=== PATIENT | male | born 1925 | race Caucasian/White ===

== ENCOUNTER 2016-11-18 21:31 | Inpatient (IN) | payer MEDICARE ==
[2016-11-18 22:24] LABS: Basophils # (A) 0.1 k/uL (0-0.2); Basophils % (A) 0 %; CH 31.7; CHCM 34.4; Eosinophils # (A) 0.1 k/uL (0-0.7); Eosinophils % (A) 0 %; HCT 48.2 % (39.0-53.0); HDW 2.49; HGB 16.2 gm/dL (13.0-17.5); Luc # (Auto) 0.18; Luc % (Auto) 1; Lymphocytes # (A) 1.2 k/uL (1.0-4.8); Lymphocytes % (A) 7 %; MCH 31.1 pg (25.0-35.0); MCHC 33.6 g/dL (31.0-37.0); MCV 92.5 fL (80.0-100.0); Mean Platelet Volume 7.6; Monocytes # (A) 1.1 k/uL (0-1.0); Monocytes % (A) 6 %; Neutrophils # (A) 14.4 k/uL (1.3-7.7); Neutrophils % (A) 85 %; RBC 5.21 m/uL (4.30-5.90); WBC 16.9 k/uL (3.8-10.6); WBC (Perox) 17.14
[2016-11-18 22:34] LABS: ALT 23 U/L (21-72); AST 26 U/L (17-59); Alkaline Phosphatase 83 U/L (38-126); Anion Gap 11 mmol/L; Blood Urea Nitrogen 25 mg/dL (9-20); Calcium 9.7 mg/dL (8.4-10.2); Carbon Dioxide 26 mmol/L (22-30); Chloride 98 mmol/L (98-107); Glucose 111 mg/dL (74-99); Non-African American GFR(MDRD) 53 (>60 ml/min/1.73 sqM); Potassium 5.1 mmol/L (3.5-5.1); Sodium 135 mmol/L (137-145); Total Bilirubin 1.1 mg/dL (0.2-1.3); Total Protein 7.6 g/dL (6.3-8.2)
[2016-11-18] MEDS ORDERED: AZITHROMYCIN 500 MG in SODIUM CHLORIDE 0.9% 250 ML IVPB STA (22:37)
[2016-11-18] MEDS ORDERED: SODIUM CHLORIDE 0.9% 1,000 ML IV STA (22:37)
[2016-11-18] MEDS ORDERED: IPRATROPIUM 0.5 MG/2.5 ML NEBU INHALATION STA (22:37)
[2016-11-18] MEDS ORDERED: ALBUTEROL NEBULIZED 2.5 MG/3 ML INHALATION STA (22:37)
[2016-11-18] MEDS ORDERED: methylPREDNISolone SOD SUCCI 125 MG/2 ML VIAL IV STA (22:37)
[2016-11-18 22:38] LABS: INR 1.1 (<1.1); Partial Thromboplastin Time 26.6 sec (22.0-30.0); Prothrombin Time 10.6 sec (9.0-12.0)
[2016-11-18] MEDS ORDERED: ACETAMINOPHEN TAB 500 MG TAB PO STA (22:41)
--- NOTE | 2016-11-18 23:02 | XR ---
EXAMINATION TYPE: XR chest 2V DATE OF EXAM: 11/18/2016 10:53 PM COMPARISON: 07/01/2016 HISTORY: COPD and short of breath and cough TECHNIQUE: Frontal and lateral views of the chest are obtained. FINDINGS: There is a patchy consolidation at the right posterior lung base. The other lung valladares ar e clear. There is no heart failure. There are no hilar masses. There are sternal wires. Bony thorax a ppears intact. IMPRESSION: There is new right lower lobe consolidation consistent with pneumonia compared to old ex am. Normal heart.
[2016-11-18 23:19] LABS: Creatine Kinase 35 U/L (55-170)
[2016-11-18 23:25] LABS: Amorphous Sediment,Urine Rare /hpf; Appearance,Urine Cloudy (Clear); Bacteria,Urine Moderate /hpf; Bilirubin,Urine Negative (Negative); Glucose,Urine (UA) Negative (Negative); Ketones,Urine Negative (Negative); Leukocyte Esterase,Urine Large (Negative); Mucus,Urine Rare /hpf; Nitrite,Urine Positive (Negative); Particle Count 10018; Protein,Urine 1+ (Negative); RBC,Urine 15 /hpf (0-5); Specific Gravity,Urine 1.011 (1.001-1.035); Squamous Epithelial Cell,Urine 1 /hpf (0-4); UA Billing (MACRO vs. MICRO) MICRO; Urobilinogen,Urine <2.0 mg/dL (<2.0); WBC,Urine 85 /hpf (0-5)
[2016-11-18 23:32] LABS: Troponin I <0.012 ng/mL (0.000-0.034)
[2016-11-18 23:34] LABS: Creatine Kinase MB 4.3 ng/mL (0.0-2.4)
[2016-11-19] MEDS ORDERED: PNEUMONIA PROTOCOL UTILIZED 1 EACH MISC PO PRN (00:28)
--- NOTE | 2016-11-19 00:28 | ED ---
SOB HPI - General Chief Complaint: Shortness of Breath Stated Complaint: Fall, SOB Time Seen by Provider: 11/18/16 21:51 Source: patient, family, EMS Mode of arrival: EMS - History of Present Illness Initial Comments: Have oxygen dependent for 7 years, develops a fever had some chills have been coughing up some phlegm he noticed that his O2 sat at home was quite low, he has arrangement to measure his oxygen saturation at home. He does wear 3 L of oxygen at home also was complaining about pain in the right side of the chest and pain gets worse with deep breaths. Denies any headaches no neck stiffness no abdominal pain frequency urgency dysuria no signs of stroke or mini stroke - Related Data Home Medications Medication Instructions Recorded Confirmed ALPRAZolam [Xanax] 0.25 - 0.5 mg PO HS PRN 11/18/16 11/18/16 Aspirin EC [Ecotrin Low Dose] 81 mg PO DAILY 11/18/16 11/18/16 Atenolol 12.5 mg PO HS 11/18/16 11/18/16 Atenolol 25 mg PO QAM 11/18/16 11/18/16 Carbidopa-Levodopa 25-100 mg 1 tab PO BID 11/18/16 11/18/16 [Sinemet 25-100] Cholecalciferol [Vitamin D3] 1,000 unit PO DAILY 11/18/16 11/18/16 Ipratropium-Albuterol Nebulize 3 ml INHALATION RT-QID 11/18/16 11/18/16 [Duoneb 0.5 mg-3 mg/3 ml Soln] Irbesartan [Avapro] 75 mg PO HS 11/18/16 11/18/16 Methylcellulose (with Sugar) 1 scoop PO BID 11/18/16 11/18/16 [Citrucel Powder] Multivit-Min/FA/Lycopene/Lut 1 tab PO DAILY 11/18/16 11/18/16 [Centrum Silver Tablet] Polyethylene Glycol 3350 [Miralax] 17 gm PO DAILY 11/18/16 11/18/16 guaiFENesin [Mucinex] 600 mg PO BID 11/18/16 11/18/16 Allergies Allergy/AdvReac Type Severity Reaction Status Date / Time Sulfa (Sulfonamide Allergy Rash/Hives Verified 11/18/16 21:58 Antibiotics) Review of Systems ROS Statement: Those systems with pertinent positive or pertinent negative responses have been documented in the HPI. ROS Other: All systems not noted in ROS Statement are negative. Past Medical History Past Medical History: COPD, Hypertension Additional Past Medical History / Comment(s): BLADDER CA History of Any Multi-Drug Resistant Organisms: None Reported Past Surgical History: Hernia Repair, Prostate Surgery Additional Past Surgical History / Comment(s): UROSTOMY, BLADDER, HEART VALVE REPLACED, COLOSTOMY Past Psychological History: No Psychological Hx Reported Smoking Status: Former smoker Past Alcohol Use History: None Reported Past Drug Use History: None Reported General Exam - General Exam Comments Initial Comments: General: The patient is awake and alert, in no distress, and does not appear acutely ill. Skin: Skin is warm and dry and no rashes or lesions are noted. Eye: Pupils are equal, round and reactive to light, extra-ocular movements are intact; there is normal conjunctiva bilaterally. Ears, nose, mouth and throat: There are moist mucous membranes and no oral lesions. Neck: The neck is supple, there is no tenderness or JVD. Cardiovascular: There is a regular rate and rhythm. No murmur, rub or gallop is appreciated. Respiratory: To auscultation bilateral, crackles at the bases bilaterally Gastrointestinal: Soft, non-distended, non-tender abdomen without masses or organomegaly noted. There is no rebound or guarding present. Bowel sounds are unremarkable. Back: There is no tenderness to palpation in the midline. There is no obvious deformity. Musculoskeletal: Normal ROM, no tenderness, There is no pedal edema. There is no calf tenderness or swelling. No cords were appreciated. Neurological: CN II-XII intact, Cranial nerves III through XII are intact. There are no obvious motor or sensory deficits. Coordination appears grossly intact. Speech is normal. Psychiatric: Cooperative, appropriate mood & affect, normal judgment. Course Vital Signs 11/18/16 11/18/16 11/18/16 21:38 22:30 23:16 Temperature 101.3 F H Pulse Rate 96 81 88 Respiratory 20 18 Rate Blood Pressure 162/75 141/65 O2 Sat by Pulse 90 L 92 L Oximetry 11/18/16 11/18/16 23:32 23:45 Temperature 100.6 F H Pulse Rate 88 Respiratory Rate Blood Pressure O2 Sat by Pulse Oximetry EKG was reviewed in the ER, its normal sinus rhythm ventricular rate is 96 OH interval is 140 QRS duration is 88 QT/QTc is 342/432 review of this EKG reveals no ST elevation or ST depression Medical Decision Making - Lab Data Result diagrams: 11/18/16 21:53 11/18/16 21:53 Lab Results 11/18/16 11/18/16 11/18/16 Range/Units 21:53 21:53 21:53 WBC 16.9 H (3.8-10.6) k/uL RBC 5.21 (4.30-5.90) m/uL Hgb 16.2 (13.0-17.5) gm/dL Hct 48.2 (39.0-53.0) % MCV 92.5 (80.0-100.0) fL MCH 31.1 (25.0-35.0) pg MCHC 33.6 (31.0-37.0) g/dL RDW 12.0 (11.5-15.5) % Plt Count 170 (150-450) k/uL Neutrophils % 85 % Lymphocytes % 7 % Monocytes % 6 % Eosinophils % 0 % Basophils % 0 % Neutrophils # 14.4 H (1.3-7.7) k/uL Lymphocytes # 1.2 (1.0-4.8) k/uL Monocytes # 1.1 H (0-1.0) k/uL Eosinophils # 0.1 (0-0.7) k/uL Basophils # 0.1 (0-0.2) k/uL PT (9.0-12.0) sec INR (<1.1) APTT (22.0-30.0) sec D-Dimer (<0.60) mg/L FEU Sodium 135 L (137-145) mmol/L Potassium 5.1 (3.5-5.1) mmol/L Chloride 98 (98-107) mmol/L Carbon Dioxide 26 (22-30) mmol/L Anion Gap 11 mmol/L BUN 25 H (9-20) mg/dL Creatinine 1.27 H (0.66-1.25) mg/dL Est GFR (MDRD) Af Amer >60 (>60 ml/min/1.73 sqM) Est GFR (MDRD) Non-Af 53 (>60 ml/min/1.73 sqM) Glucose 111 H (74-99) mg/dL Plasma Lactic Acid Theodore 2.0 (0.7-2.0) mmol/L Calcium 9.7 (8.4-10.2) mg/dL Total Bilirubin 1.1 (0.2-1.3) mg/dL AST 26 (17-59) U/L ALT 23 (21-72) U/L Alkaline Phosphatase 83 (38-126) U/L Total Creatine Kinase (55-170) U/L CK-MB (CK-2) (0.0-2.4) ng/mL CK-MB (CK-2) Rel Index Troponin I (0.000-0.034) ng/mL Total Protein 7.6 (6.3-8.2) g/dL Albumin 4.4 (3.5-5.0) g/dL Urine Color Urine Appearance (Clear) Urine pH (5.0-8.0) Ur Specific [place] (1.001-1.035) Urine Protein (Negative) Urine Glucose (UA) (Negative) Urine Ketones (Negative) Urine Blood (Negative) Urine Nitrite (Negative) Urine Bilirubin (Negative) Urine Urobilinogen (<2.0) mg/dL Ur Leukocyte Esterase (Negative) Urine RBC (0-5) /hpf Urine WBC (0-5) /hpf Urine WBC Clumps (None) /hpf Ur Squamous Epith Cells (0-4) /hpf Amorphous Sediment (None) /hpf Urine Bacteria (None) /hpf Urine Mucus (None) /hpf 11/18/16 11/18/16 11/18/16 Range/Units 21:53 21:53 23:04 WBC (3.8-10.6) k/uL RBC (4.30-5.90) m/uL Hgb (13.0-17.5) gm/dL Hct (39.0-53.0) % MCV (80.0-100.0) fL MCH (25.0-35.0) pg MCHC (31.0-37.0) g/dL RDW (11.5-15.5) % Plt Count (150-450) k/uL Neutrophils % % Lymphocytes % % Monocytes % % Eosinophils % % Basophils % % Neutrophils # (1.3-7.7) k/uL Lymphocytes # (1.0-4.8) k/uL Monocytes # (0-1.0) k/uL Eosinophils # (0-0.7) k/uL Basophils # (0-0.2) k/uL PT 10.6 (9.0-12.0) sec INR 1.1 (<1.1) APTT 26.6 (22.0-30.0) sec D-Dimer 0.42 (<0.60) mg/L FEU Sodium (137-145) mmol/L Potassium (3.5-5.1) mmol/L Chloride (98-107) mmol/L Carbon Dioxide (22-30) mmol/L Anion Gap mmol/L BUN (9-20) mg/dL Creatinine (0.66-1.25) mg/dL Est GFR (MDRD) Af Amer (>60 ml/min/1.73 sqM) Est GFR (MDRD) Non-Af (>60 ml/min/1.73 sqM) Glucose (74-99) mg/dL Plasma Lactic Acid Theodore (0.7-2.0) mmol/L Calcium (8.4-10.2) mg/dL Total Bilirubin (0.2-1.3) mg/dL AST (17-59) U/L ALT (21-72) U/L Alkaline Phosphatase (38-126) U/L Total Creatine Kinase 35 L (55-170) U/L CK-MB (CK-2) 4.3 H* (0.0-2.4) ng/mL CK-MB (CK-2) Rel Index 12.3 Troponin I <0.012 (0.000-0.034) ng/mL Total Protein (6.3-8.2) g/dL Albumin (3.5-5.0) g/dL Urine Color Yellow Urine Appearance Cloudy (Clear) Urine pH 7.0 (5.0-8.0) Ur Specific [place] 1.011 (1.001-1.035) Urine Protein 1+ H (Negative) Urine Glucose (UA) Negative (Negative) Urine Ketones Negative (Negative) Urine Blood Small H (Negative) Urine Nitrite Positive (Negative) Urine Bilirubin Negative (Negative) Urine Urobilinogen <2.0 (<2.0) mg/dL Ur Leukocyte Esterase Large H (Negative) Urine RBC 15 H (0-5) /hpf Urine WBC 85 H (0-5) /hpf Urine WBC Clumps Occasional H (None) /hpf Ur Squamous Epith Cells 1 (0-4) /hpf Amorphous Sediment Rare H (None) /hpf Urine Bacteria Moderate H (None) /hpf Urine Mucus Rare H (None) /hpf Disposition Clinical Impression: Pneumonia, Chest pain, UTI (urinary tract infection) Disposition: ADMITTED IP TO THIS HOSP
[2016-11-19] MEDS: SODIUM CHLORIDE 0.9% 1,000 ML IV SCH ×3 (00:44→19:55)
[2016-11-19] MEDS: IPRATROPIUM-ALBUTEROL 3 ML NEB INHALATION PRN ×5 (03:03→20:34)
[2016-11-19 07:32] VITALS: BMI 25.4
[2016-11-19] MEDS: ASPIRIN 81 MG CHEW PO SCH (09:36)
[2016-11-19] MEDS: ATENOLOL 25 MG TAB PO SCH (09:36)
[2016-11-19] MEDS: CARBIDOPA-LEVODOPA 25-100 MG 1 EACH TAB PO SCH ×2 (09:36→21:48)
[2016-11-19] MEDS: CHOLECALCIFEROL 1,000 UNIT TAB PO SCH (09:37)
[2016-11-19] MEDS: POLYETHYLENE GLYCOL 3350 17 GM POWD.PACK PO SCH (09:38)
[2016-11-19] MEDS: guaiFENesin 600 MG TABLET.ER PO SCH ×2 (09:38→21:48)
[2016-11-19] MEDS: PSYLLIUM HUSK 100% 6 GM PACKET PO SCH ×2 (09:38→21:49)
[2016-11-19] MEDS: MULTIVITAMINS, THERA 1 EACH TAB PO SCH (11:47)
--- NOTE | 2016-11-19 11:47 | P.CNPUL ---
History of Present Illness Consult date: 11/19/16 Requesting physician: Dannie Warren Reason for consult: dyspnea (Right lower lobe infiltrate), abnormal CXR/CT Chief complaint: Shortness of breath, cough, congestion History of present illness: This is a very pleasant 89-year-old gentleman who follows with Dr. Jarquin as his primary care physician. He has a history of hypertension, coronary artery disease with previous stent placement, bladder cancer status post urostomy, prostate cancer status post prostatectomy, paracardial effusion with previous pericardial window, aortic valve replacement with tissue valve. He also has a history of oxygen dependent chronic obstructive pulmonary disease with FEV1 value of 52% of predicted and follows with Dr. Butcher in our office for the same. His been intolerant to multiple inhalers and currently utilizes albuterol updraft treatments 4 times a day. He was last seen in June and since that time had been doing quite well from the pulmonary standpoint. However just yesterday he developed increasing shortness of breath which worsened as the day went on. He had a loose nonproductive cough. Positive chills. He presented to the emergency room last evening. He did have a T-max of 101.3. He was 90% O2 saturation on 4 L/m per nasal cannula. Mild leukocytosis at 16.9. Urine with bacteria as well. His chest x-ray did reveal evidence of a new right lower lobe infiltrate and suspected pneumonia. He was admitted for the same. He is seen today in consultation on the regular medical floor. He is awake and alert in no acute distress. He states he is a 30 breathing better today as compared to yesterday. He is currently afebrile. He is maintaining good O2 saturations in the upper 90s on 3 L/m per nasal cannula. He has been initiated on ceftriaxone and azithromycin. Review of Systems 14 point review of system was conducted. All negative other than as mentioned in the HPI. Past Medical History Past Medical History: Coronary Artery Disease (CAD), COPD, Hyperlipidemia, Hypertension, Myocardial Infarction ([place]), Pneumonia, Renal Disease Additional Past Medical History / Comment(s): SOB with exertion, O2 at 3L/NC ATC , BLADDER CA with urostomy, BPH with surgery, 2012 fell and had pericardial effusion-had pericardial window, CKD, nephrolithiasis, arthritis bilateral hands , L ear melanoma withremoval, balance problems, unable to tolerate statins, neuropathy bilateral legs and feet. Last Myocardial Infarction Date:: 1992 History of Any Multi-Drug Resistant Organisms: None Reported Past Surgical History: Bladder Surgery, Cardiac Valve Replacement, Heart Catheterization, Heart Catheterization With Stent, Hernia Repair, Prostate Surgery Additional Past Surgical History / Comment(s): UROSTOMY, prostatectomy, 2010 aortic valve replaced with tissue valve, 2008 PCI with stent to RCA, 09/14/11 pericardial window, incisional hernia with mesh, CHIKI and cardiac caths, bilateral cataract removal, L ear melanoma removed, EGD/colonoscopies. Past Anesthesia/Blood Transfusion Reactions: No Reported Reaction Additional Past Anesthesia/Blood Transfusion Reaction / Comment(s): Pt has received autodonor blood with prostatectomy. Date of Last Stent Placement:: 2008 Past Psychological History: No Psychological Hx Reported Additional Psychological History / Comment(s): Pt resides with spouse of 70yrs. He uses a cane to ambulate. He has a walker but does not need to use it. He and his spouse no longer drive, their children can take them to appts. There are 4 steps to get into the home and then it is one level. Pt has O2 at 3L/NC and a nebulizer. Smoking Status: Former smoker Past Alcohol Use History: None Reported Additional Past Alcohol Use History / Comment(s): Pt smoked from 1959 to 1982. Past Drug Use History: None Reported - Past Family History Father Family Medical History: Cancer Additional Family Medical History / Comment(s): Father was a smoker. He of lung cancer at the age of 69yrs. Mother Family Medical History: Coronary Artery Disease (CAD), CVA/TIA Additional Family Medical History / Comment(s): Mother was healthy up until the end of her life-she then had heart trouble and a CVA. She at the age of 96yrs. Medications and Allergies Home Medications Medication Instructions Recorded Confirmed Type ALPRAZolam [Xanax] 0.25 - 0.5 mg PO HS PRN 11/18/16 11/18/16 History Aspirin EC [Ecotrin Low Dose] 81 mg PO DAILY 11/18/16 11/18/16 History Atenolol 12.5 mg PO HS 11/18/16 11/18/16 History Atenolol 25 mg PO QAM 11/18/16 11/18/16 History Carbidopa-Levodopa 25-100 mg 1 tab PO BID 11/18/16 11/18/16 History [Sinemet 25-100] Cholecalciferol [Vitamin D3] 1,000 unit PO DAILY 11/18/16 11/18/16 History Ipratropium-Albuterol Nebulize 3 ml INHALATION RT-QID 11/18/16 11/18/16 History [Duoneb 0.5 mg-3 mg/3 ml Soln] Irbesartan [Avapro] 75 mg PO HS 11/18/16 11/18/16 History Methylcellulose (with Sugar) 1 scoop PO BID 11/18/16 11/18/16 History [Citrucel Powder] Multivit-Min/FA/Lycopene/Lut 1 tab PO DAILY 11/18/16 11/18/16 History [Centrum Silver Tablet] Polyethylene Glycol 3350 [Miralax] 17 gm PO DAILY 11/18/16 11/18/16 History guaiFENesin [Mucinex] 600 mg PO BID 11/18/16 11/18/16 History Allergies Allergy/AdvReac Type Severity Reaction Status Date / Time Sulfa (Sulfonamide Allergy Rash/Hives Verified 11/18/16 21:58 Antibiotics) Physical Exam Vitals: Vital Signs Temp Pulse Pulse Resp BP BP Pulse Ox 11/19/16 10:28 96.9 F L 96 18 141/72 93 L 11/19/16 07:43 82 20 11/19/16 07:40 97.6 F 82 20 133/65 93 L 11/19/16 07:39 84 11/19/16 07:26 90 11/19/16 07:03 87 18 134/65 93 L 11/19/16 05:51 87 18 132/63 92 L 11/19/16 05:45 98.9 F 11/19/16 03:18 90 11/19/16 03:04 90 11/19/16 02:30 84 16 131/68 92 L 11/19/16 00:54 97.6 F 82 20 133/65 93 L 11/19/16 00:36 99.7 F H Intake and Output 11/18/16 11/19/16 11/19/16 22:59 06:59 14:59 Output Total 500 Balance -500 Output: Urine 500 Other: # Voids 2 Weight 78.018 kg GENERAL EXAM: Alert, active, comfortable in no apparent distress. HEAD: Normocephalic. EYES: Normal reaction of pupils, equal size. NOSE: Clear with pink turbinates. THROAT: No erythema or exudates. NECK: No masses, no JVD. CHEST: No chest wall deformity. LUNGS: Equal air entry with crackles in the right posterior base. Diminished.. CVS: S1 and S2 normal with no audible mumurs, regular rhythm. ABDOMEN: No hepatosplenomegaly, normal bowel sounds, no guarding or rigidity. SPINE: No scoliosis or deformity SKIN: No rashes CENTRAL NERVOUS SYSTEM: No focal deficits, tone is normal in all 4 extremities. Extremities: There is no significant peripheral edema. No clubbing, no cyanosis. Peripheral pulses are intact. Results - Laboratory Findings CBC and BMP: 11/18/16 21:53 11/18/16 21:53 PT/INR, D-dimer PT 10.6 sec (9.0-12.0) 11/18/16 21:53 INR 1.1 (<1.1) 11/18/16 21:53 D-Dimer 0.42 mg/L FEU (<0.60) 11/18/16 21:53 - Diagnostic Findings Chest x-ray: image reviewed (Right lower lobe infiltrate) Assessment and Plan Plan: Impression: #1 Dyspnea secondary to a new right lower lobe infiltrate suspect community- acquired pneumonia. #2 Febrile illness secondary to above. #3 Leukocytosis secondary to above. #4 Acute on chronic renal failure secondary to dehydration. #5 Acute exacerbation of chronic obstructive pulmonary disease secondary to right lower lobe pneumonia. #6 Coronary artery disease with previous PCI. #7 History of aortic valve replacement, tissue. #8 Hypertension. #9 History of bladder cancer status post urostomy. #10 Urinary tract infection, cultures pending. Plan: The patient was seen and evaluated by Dr. Butcher. His chest x-ray and labs were reviewed. We will continue with current antibiotics in the form of ceftriaxone and azithromycin. We'll continue with bronchodilators. We will repeat his chest x-ray in the a.m. We will increase his activity as tolerated. We'll continue to follow.
--- NOTE | 2016-11-19 14:03 | HP ---
DATE OF ADMISSION: This gentleman is a 89-year-old gentleman who presented to the emergency room late last evening with shortness of breath, chills, phlegm production with cough, dropping his O2 sats with a minimal movement down into the 80s, some pain on the right side of the chest with coughing and deep breathing. The patient does have a past medical history of severe chronic obstructive pulmonary disease and has been followed apparently by Dr. Butcher as an outpatient. He is a former smoker. There is some history also of cardiac problems with a history of aortic valve replacement in the past and has had also coronary artery disease with previous stenting. There is a history of previous gout attacks, peripheral vascular disease and hypertension, along with a history of bladder cancer and previous prostate surgery and hernia repair in the past. He has a urostomy. Home medications include: Xanax 0.25 mg 1 to 2 at bedtime as needed, aspirin 81 mg daily, atenolol 25 mg in the morning and 12.5 mg at night, Sinemet 25/100 one twice a day for restless leg syndrome, vitamin D3 1000 units daily. He is on DuoNeb respiratory treatments 4 times a day and as needed. He is on Avapro 75 mg at bedtime, Metamucil one scoop twice a day for his bowels, multiple vitamin, MiraLAX 17 grams daily and Mucinex 600 twice a day. There is history of ALLERGY with rash and hives to SULFA medication. REVIEW OF SYSTEMS: As mentioned in the history of present illness. Presently, he denies any urinary or bowel symptoms or any unusual leg edema. No nausea, vomiting, mostly symptoms are related to the respiratory system as stated in the history of present illness. SOCIAL HISTORY: He does live locally with his and is a former smoker. There is no history of any excessive alcohol usage. FAMILY HISTORY: Noncontributory. On physical examination, he is presently alert, lying down to the emergency room on the [facility]. Temperature 97.6 with a pulse of 82, respirations 20, blood pressure 133/65 and he is 93% saturated high flow cannula 6 liters. Head and neck exam is atraumatic with extraocular movements intact. Neck is supple without adenopathy, thyromegaly, or bruits. Lungs reveal some diffuse diminished breath sounds without wheeze. Heart tones were regular. Slight systolic murmur, but no gallop rhythm. Abdomen is soft, nontender without organomegaly. Genital and rectal exam deferred. Extremities revealed no edema. Neurologically, he is alert, oriented. Cranial nerves were intact. He is moving all extremities without focal deficits. Laboratory values revealed a white count elevated at 16.9 with a hemoglobin 16.2 and a platelet count of 170. There was a left shift with neutrophils at 14.4. INR is 1.1. D-dimer was 0.42, which was normal. Sodium 135 with a potassium 5.1, BUN of 25, creatinine 1.25. Blood sugar of 111. Other liver function tests were generally satisfactory. His albumin was 4.4. Troponin normal at less than 0.012 and CK was only 35. Urinalysis also revealed a large amount of leukocyte esterase and 85 white cells, 15 RBCs. The EKG revealed normal sinus rhythm with some left axis, but no acute ischemic changes. Chest x-ray showed under right lower lobe consolidation/pneumonia and this was compared to his one in June of last year. OVERALL IMPRESSION: 1. Acute on chronic respiratory failure with hypoxia, underlying chronic obstructive pulmonary disease and previous smoking history with acute on chronic respiratory failure. 2. Pyuria and possible urinary tract infection with previous history of bladder cancer and surgery with presence of urostomy and additional possible infection. 3. History of coronary artery disease and aortic valvular heart disease. 4. Hypertensive heart disease. PLAN: At this point, the patient is being admitted, respiratory treatments to be initiated. Antibiotics for both pneumonia and possible bladder and urinary source. Pending cultures. Also consultation with pulmonary medicine specialist and further recommendations and treatment pending clinical response and results of above. MTDD
[2016-11-19] MEDS: LOSARTAN 25 MG TAB PO SCH (21:48)
[2016-11-19] MEDS: AZITHROMYCIN 500 MG TAB PO SCH (21:48)
[2016-11-19] MEDS: ATENOLOL 12.5 MG TAB PO SCH (21:48)
[2016-11-19] MEDS: ALPRAZolam 0.25 MG TAB PO PRN (22:24)
[2016-11-20] MEDS: SODIUM CHLORIDE 0.9% 1,000 ML IV SCH ×2 (06:17→15:30)
--- NOTE | 2016-11-20 07:54 | XR ---
EXAMINATION TYPE: XR chest 2V DATE OF EXAM: 11/20/2016 7:14 AM HISTORY: pneumonia. REFERENCE: Previous study dated 11/18/2016. FINDINGS: There has been a midline sternotomy. There is worsening right basilar airspace disease. There is overinflation the lungs. Heart size is up per limits of normal. IMPRESSION: 1. COPD. 2. WORSENING RIGHT BASILAR AIRSPACE DISEASE.
[2016-11-20] MEDS: IPRATROPIUM-ALBUTEROL 3 ML NEB INHALATION PRN ×4 (09:04→19:57)
[2016-11-20] MEDS: CHOLECALCIFEROL 1,000 UNIT TAB PO SCH (09:45)
[2016-11-20] MEDS: ATENOLOL 25 MG TAB PO SCH (09:45)
[2016-11-20] MEDS: CARBIDOPA-LEVODOPA 25-100 MG 1 EACH TAB PO SCH ×2 (09:45→20:41)
[2016-11-20] MEDS: POLYETHYLENE GLYCOL 3350 17 GM POWD.PACK PO SCH (09:45)
[2016-11-20] MEDS: ASPIRIN 81 MG CHEW PO SCH (09:45)
[2016-11-20] MEDS: guaiFENesin 600 MG TABLET.ER PO SCH ×2 (09:45→20:41)
--- NOTE | 2016-11-20 10:09 | P.PN ---
Progress Note - Text The patient is a 89-year-old gentleman who does have a history of oxygen dependent rather severe COPD with a previous FEV1 of only 52%. He presented with cough, shortness of breath and weakness. He also did have a temperature. Chest x-ray revealed a right lower lobe pneumonia. Patient has been on antibiotics in the form of ceftriaxone and azithromycin. He has been evaluated and seen by pulmonary medicine. This morning he states he is coughing less but still short of breath with very minimal exertion even trying to turn while he is in bed. Patient denies any unusual chest pain. He did state he had some reflux symptoms and has had some difficulty swallowing pills. Vital signs reveal temperature of 97 with a pulse of 80 and respirations 24. His percent saturation was 97 on 7 L high flow cannula. Blood pressure was 130/ 70. He appears overall comfortable sitting up in bed at rest. Lungs so do reveal some diminished breath sounds at the bases with some scattered rhonchi on the right. Heart tones were regular. Abdomen nontender. No unusual edema. He is alert and oriented. Cranial nerves intact. No focal weakness noted. Chest x-ray from this morning did reveal some worsening of the initial infiltrate in the right lower lobe. Blood culture was no growth after 24 hours but urine culture is growing gram- negative bacilli from his ostomy. Impressions and plans: Overall this is a elderly frail 89-year-old gentleman who initially has severe oxygen-dependent COPD and now with a underlying right lower lobe pneumonia. He also does have bacteria in his urine which raises the possibility of a secondary site of infection versus colonization. Patient does seem to be covered with antibiotics. He is on respiratory treatments. We will continue with present treatment pending any further recommendations from pulmonary medicine. Discussed with patient and staff at bedside. We will add Pepcid for his reflux symptoms. Swallowing becomes more difficult or does not improve may need further examination. We will also order CBC and basic metabolic panel for morning. Prognosis is guarded in light of his underlying severe COPD and pneumonia.
[2016-11-20] MEDS: MULTIVITAMINS, THERA 1 EACH TAB PO SCH (12:31)
[2016-11-20] MEDS: PSYLLIUM HUSK 100% 6 GM PACKET PO SCH ×2 (12:32→20:41)
--- NOTE | 2016-11-20 12:48 | P.PN ---
Subjective This is a very pleasant 89-year-old gentleman who follows with Dr. Warren as his primary care physician. He has a history of hypertension, coronary artery disease with previous stent placement, bladder cancer status post urostomy, prostate cancer status post prostatectomy, paracardial effusion with previous pericardial window, aortic valve replacement with tissue valve. He also has a history of oxygen dependent chronic obstructive pulmonary disease with FEV1 value of 52% of predicted and follows with Dr. Butcher in our office for the same. His been intolerant to multiple inhalers and currently utilizes albuterol updraft treatments 4 times a day. He was last seen in June and since that time had been doing quite well from the pulmonary standpoint. However just yesterday he developed increasing shortness of breath which worsened as the day went on. He had a loose nonproductive cough. Positive chills. He presented to the emergency room last evening. He did have a T-max of 101.3. He was 90% O2 saturation on 4 L/m per nasal cannula. Mild leukocytosis at 16.9. Urine with bacteria as well. His chest x-ray did reveal evidence of a new right lower lobe infiltrate and suspected pneumonia. He was admitted for the same. He is seen today in consultation on the regular medical floor. He is awake and alert in no acute distress. He states he is a 30 breathing better today as compared to yesterday. He is currently afebrile. He is maintaining good O2 saturations in the upper 90s on 3 L/m per nasal cannula. He has been initiated on ceftriaxone and azithromycin. The patient is seen again today 11/20/2016 in follow-up. He feels about the same today as compared to yesterday. No real improvement. He is still requiring 8 L of high flow nasal cannula to maintain O2 saturations in the 90s. Today's chest x-ray does show worsening right basilar airspace disease. He is currently afebrile. Hemodynamically stable. His urine culture is positive for gram-negative bacilli. Objective - Vital Signs Vital signs: Vital Signs Temp 97.0 F L 11/20/16 07:00 Pulse 80 11/20/16 12:29 Resp 24 11/20/16 08:00 BP 130/70 11/20/16 07:00 Pulse Ox 97 11/20/16 07:00 Intake & Output 11/19/16 11/20/16 11/20/16 18:59 06:59 18:59 Output Total 1600 1300 300 Balance -1600 -1300 -300 Output: Urine 1600 1300 300 Other: # Voids 2 3 # Bowel Movements 1 - Exam GENERAL EXAM: Alert, active, comfortable in no apparent distress. HEAD: Normocephalic. EYES: Normal reaction of pupils, equal size. NOSE: Clear with pink turbinates. THROAT: No erythema or exudates. NECK: No masses, no JVD. CHEST: No chest wall deformity. LUNGS: Equal air entry with crackles in the right posterior base. Diminished. CVS: S1 and S2 normal with no audible mumurs, regular rhythm. ABDOMEN: No hepatosplenomegaly, normal bowel sounds, no guarding or rigidity. SPINE: No scoliosis or deformity SKIN: No rashes CENTRAL NERVOUS SYSTEM: No focal deficits, tone is normal in all 4 extremities. Extremities: There is no significant peripheral edema. No clubbing, no cyanosis. Peripheral pulses are intact. - Labs CBC & Chem 7: 11/18/16 21:53 11/18/16 21:53 Assessment and Plan Plan: Impression: #1 Dyspnea secondary to a new right lower lobe infiltrate suspect community- acquired pneumonia. Slightly worse on today's chest x-ray. #2 Febrile illness secondary to above. Afebrile today. #3 Leukocytosis secondary to above. #4 Acute on chronic renal failure secondary to dehydration. #5 Acute exacerbation of chronic obstructive pulmonary disease secondary to right lower lobe pneumonia. #6 Coronary artery disease with previous PCI. #7 History of aortic valve replacement, tissue. #8 Hypertension. #9 History of bladder cancer status post urostomy. #10 Urinary tract infection secondary to gram-negative bacilli. Plan: The patient was seen and evaluated by Dr. Butcher. His chest x-ray and labs were reviewed. We will continue with current antibiotics in the form of ceftriaxone and azithromycin. We'll continue with bronchodilators. We will increase his activity as tolerated. We'll continue to follow.
[2016-11-20] MEDS: LOSARTAN 25 MG TAB PO SCH (20:41)
[2016-11-20] MEDS: FAMOTIDINE 20 MG TAB PO SCH (20:41)
[2016-11-20] MEDS: AZITHROMYCIN 500 MG TAB PO SCH (20:41)
[2016-11-20] MEDS: ATENOLOL 12.5 MG TAB PO SCH (20:41)
[2016-11-21] MEDS: SODIUM CHLORIDE 0.9% 1,000 ML IV SCH ×3 (03:27→22:25)
[2016-11-21] MEDS: IPRATROPIUM-ALBUTEROL 3 ML NEB INHALATION PRN ×4 (06:14→20:21)
[2016-11-21 09:40] LABS: Basophils % (A) 0 %; CH 30.9; CHCM 33.3; Eosinophils # (A) 0.1 k/uL (0-0.7); Eosinophils % (A) 1 %; HCT 43.9 % (39.0-53.0); HDW 2.42; HGB 14.4 gm/dL (13.0-17.5); Luc # (Auto) 0.15; Luc % (Auto) 1; Lymphocytes # (A) 0.9 k/uL (1.0-4.8); Lymphocytes % (A) 6 %; MCH 30.6 pg (25.0-35.0); MCHC 32.8 g/dL (31.0-37.0); MCV 93.2 fL (80.0-100.0); Mean Platelet Volume 6.7; Monocytes # (A) 1.3 k/uL (0-1.0); Monocytes % (A) 8 %; Neutrophils # (A) 13.7 k/uL (1.3-7.7); Neutrophils % (A) 85 %; RBC 4.71 m/uL (4.30-5.90); WBC 16.1 k/uL (3.8-10.6); WBC (Perox) 16.37
--- NOTE | 2016-11-21 10:01 | P.PN ---
Progress Note - Text The patient is an 89-year-old gentleman who does have a previous history of severe COPD, having been oxygen dependent and previous FEV1 of only 52%. Patient presented to emergency room with cough and shortness of breath. He has been found to have a right lower lobe pneumonia. He has been treated with antibiotics in the form of ceftriaxone and azithromycin along with respiratory treatments. States he did have some shortness of breath during the night. Also complaining of some abdominal distress with gas. No vomiting. No unusual chest pain. He was easily aroused. Temperature 97.5 with a pulse of 88 - 105. Respirations are 22 and nonlabored at rest. Blood pressure 163/80. He is 92% saturated on 7 L nasal cannula. Lungs are generally diminished with scattered rhonchi but for the most part clear. Heart tones are regular this morning. Abdomen slightly distended with the no definite tenderness noted on palpation. No masses. No organomegaly. No edema. He is alert and oriented without focal deficits. Laboratory values reveal a white count of 16.1 with a hemoglobin of 14 and a platelet count of 155. Impressions and plans: Continue present antibiotics and respiratory treatments as per pulmonary medicine. Patient generally appears to be slowly improving. Pulmonary notes were regarded. Discussed with patient at bedside this morning. Dr. Terry on medical call for me if any concerns today.
[2016-11-21] MEDS: ASPIRIN 81 MG CHEW PO SCH (10:06)
[2016-11-21] MEDS: CARBIDOPA-LEVODOPA 25-100 MG 1 EACH TAB PO SCH ×2 (10:06→20:15)
[2016-11-21] MEDS: FAMOTIDINE 20 MG TAB PO SCH ×2 (10:06→20:15)
[2016-11-21] MEDS: ATENOLOL 25 MG TAB PO SCH (10:07)
[2016-11-21] MEDS: CHOLECALCIFEROL 1,000 UNIT TAB PO SCH (10:07)
[2016-11-21] MEDS: guaiFENesin 600 MG TABLET.ER PO SCH ×2 (10:07→20:15)
[2016-11-21] MEDS: MULTIVITAMINS, THERA 1 EACH TAB PO SCH (10:08)
[2016-11-21] MEDS: PSYLLIUM HUSK 100% 6 GM PACKET PO SCH ×2 (10:08→20:15)
[2016-11-21] MEDS: POLYETHYLENE GLYCOL 3350 17 GM POWD.PACK PO SCH (10:08)
[2016-11-21 10:11] LABS: Anion Gap 10 mmol/L; Blood Urea Nitrogen 23 mg/dL (9-20); Calcium 9.1 mg/dL (8.4-10.2); Carbon Dioxide 22 mmol/L (22-30); Chloride 105 mmol/L (98-107); Glucose 91 mg/dL (74-99); Non-African American GFR(MDRD) 57 (>60 ml/min/1.73 sqM); Potassium 4.5 mmol/L (3.5-5.1); Sodium 137 mmol/L (137-145)
--- NOTE | 2016-11-21 13:15 | P.PN ---
Subjective Principal diagnosis: Acute right lower lobe pneumonia and exacerbation of COPD. This is a very pleasant 89-year-old gentleman who follows with Dr. Warren as his primary care physician. He has a history of hypertension, coronary artery disease with previous stent placement, bladder cancer status post urostomy, prostate cancer status post prostatectomy, paracardial effusion with previous pericardial window, aortic valve replacement with tissue valve. He also has a history of oxygen dependent chronic obstructive pulmonary disease with FEV1 value of 52% of predicted and follows with Dr. Butcher in our office for the same. His been intolerant to multiple inhalers and currently utilizes albuterol updraft treatments 4 times a day. He was last seen in June and since that time had been doing quite well from the pulmonary standpoint. However just yesterday he developed increasing shortness of breath which worsened as the day went on. He had a loose nonproductive cough. Positive chills. He presented to the emergency room last evening. He did have a T-max of 101.3. He was 90% O2 saturation on 4 L/m per nasal cannula. Mild leukocytosis at 16.9. Urine with bacteria as well. His chest x-ray did reveal evidence of a new right lower lobe infiltrate and suspected pneumonia. He was admitted for the same. He is seen today in consultation on the regular medical floor. He is awake and alert in no acute distress. He states he is a 30 breathing better today as compared to yesterday. He is currently afebrile. He is maintaining good O2 saturations in the upper 90s on 3 L/m per nasal cannula. He has been initiated on ceftriaxone and azithromycin. The patient is seen again today 11/20/2016 in follow-up. He feels about the same today as compared to yesterday. No real improvement. He is still requiring 8 L of high flow nasal cannula to maintain O2 saturations in the 90s. Today's chest x-ray does show worsening right basilar airspace disease. He is currently afebrile. Hemodynamically stable. His urine culture is positive for gram-negative bacilli. Reevaluated today on 11/21/2016, feeling a bit better today compared to how he felt when he came in. Less cough and less wheezing less shortness of breath, hence I recommended a follow-up chest x-ray to be done in a.m., and if his pneumonia is showing improvement, patient could be considered for discharge planning. Continues to have leukocytosis with WBC count of 16.1 electrolytes are normal renal profile is relatively normal. Objective - Vital Signs Vital signs: Vital Signs Temp 97.5 F L 11/21/16 07:00 Pulse 92 11/21/16 11:03 Resp 22 11/21/16 07:00 BP 163/80 11/21/16 07:00 Pulse Ox 92 L 11/21/16 07:00 Intake & Output 11/20/16 11/21/16 11/21/16 18:59 06:59 18:59 Output Total 1200 950 Balance -1200 -950 Output: Urine 1200 950 Other: # Voids 2 # Bowel Movements 1 1 - Exam GENERAL EXAM: Alert, active, comfortable in no apparent distress. HEAD: Normocephalic. EYES: Normal reaction of pupils, equal size. NOSE: Clear with pink turbinates. THROAT: No erythema or exudates. NECK: No masses, no JVD. CHEST: No chest wall deformity. LUNGS: Equal air entry with crackles in the right posterior base. Diminished. CVS: S1 and S2 normal with no audible mumurs, regular rhythm. ABDOMEN: No hepatosplenomegaly, normal bowel sounds, no guarding or rigidity. SPINE: No scoliosis or deformity SKIN: No rashes CENTRAL NERVOUS SYSTEM: No focal deficits, tone is normal in all 4 extremities. Extremities: There is no significant peripheral edema. No clubbing, no cyanosis. Peripheral pulses are intact. - Labs CBC & Chem 7: 11/21/16 08:55 11/21/16 08:55 Labs: Abnormal Lab Results - Last 24 Hours (Table) 11/21/16 11/21/16 Range/Units 08:55 08:55 WBC 16.1 H (3.8-10.6) k/uL Neutrophils # 13.7 H (1.3-7.7) k/uL Lymphocytes # 0.9 L (1.0-4.8) k/uL Monocytes # 1.3 H (0-1.0) k/uL BUN 23 H (9-20) mg/dL Microbiology - Last 24 Hours (Table) 11/20/16 14:15 Gram Stain - Preliminary Sputum Assessment and Plan Plan: #1 Dyspnea secondary to a new right lower lobe infiltrate suspect community- acquired pneumonia. Slightly worse on today's chest x-ray. #2 Febrile illness secondary to above. Afebrile today. #3 Leukocytosis secondary to above. #4 Acute on chronic renal failure secondary to dehydration. #5 Acute exacerbation of chronic obstructive pulmonary disease secondary to right lower lobe pneumonia. #6 Coronary artery disease with previous PCI. #7 History of aortic valve replacement, tissue. #8 Hypertension. #9 History of bladder cancer status post urostomy. #10 Urinary tract infection secondary to gram-negative bacilli. Recommendation: Continue all present treatment plan and medications, repeat chest x-ray in a.m., if improved or at least if it is not getting any worse, consider discharge planning. And follow-up on outpatient basis. Time with Patient: Less than 30
[2016-11-21] MEDS: LOSARTAN 25 MG TAB PO SCH (20:15)
[2016-11-21] MEDS: ATENOLOL 12.5 MG TAB PO SCH (20:15)
[2016-11-21] MEDS: AZITHROMYCIN 500 MG TAB PO SCH (20:15)
[2016-11-22] MEDS: IPRATROPIUM-ALBUTEROL 3 ML NEB INHALATION PRN ×5 (02:19→20:39)
--- NOTE | 2016-11-22 07:56 | P.PN ---
Progress Note - Text The patient is an 89-year-old gentleman who has a history of rather severe COPD being oxygen dependent at home and with a previous FEV1 of only 52%. Patient was found on presentation to the emergency room to have a right lower lobe pneumonia. Patient appears to be improving on present antibiotics with ceftriaxone and azithromycin. Patient is followed by pulmonary medicine and please refer to their notes. Vital signs reveal temperature of 98.5 with a pulse of 90 and respirations 18. Blood pressure is 147/76 and he is 92% saturated on 7 L nasal cannula. Lungs are diffusely diminished. Heart tones regular. Abdomen is nontender. No edema. No neurological changes. Microbiology: Blood cultures have been negative. Urine culture did grow Citrobacter Freundii which seems to be sensitive to most antibiotics. Impressions and plans: Patient to continue with his respiratory treatments. He is to have a follow-up chest x-ray today. Continue present antibiotics. A consult has been placed with physical and occupational therapies. Have also put a consult in for ostomy nurse to change patient's pouch. Hopefully with further clinical stabilization and improvement in chest x-ray we' ll consider possible discharge to home over the next 24-48 hours.
[2016-11-22] MEDS: ASPIRIN 81 MG CHEW PO SCH (08:08)
[2016-11-22] MEDS: FAMOTIDINE 20 MG TAB PO SCH (08:08)
[2016-11-22] MEDS: guaiFENesin 600 MG TABLET.ER PO SCH ×2 (08:08→20:08)
[2016-11-22] MEDS: CHOLECALCIFEROL 1,000 UNIT TAB PO SCH (08:08)
[2016-11-22] MEDS: ATENOLOL 25 MG TAB PO SCH (08:08)
[2016-11-22] MEDS: CARBIDOPA-LEVODOPA 25-100 MG 1 EACH TAB PO SCH ×2 (08:08→20:09)
[2016-11-22] MEDS: POLYETHYLENE GLYCOL 3350 17 GM POWD.PACK PO SCH (08:09)
[2016-11-22] MEDS: PSYLLIUM HUSK 100% 6 GM PACKET PO SCH ×2 (08:09→20:08)
--- NOTE | 2016-11-22 10:33 | P.PN ---
Subjective Progress note dated 10/25/2016 The patient seemed be doing better again today. Seen by Dr. Butcher yesterday. Feeling better then. The patient does have less wheezing coughing and shortness of breath. Sitting up at the bedside commode when I went into the room. No chest pain or chest discomfort. No fever no chills. No nausea vomiting or diarrhea. Objective - Vital Signs Vital signs: Vital Signs Temp 97 F L 11/22/16 07:00 Pulse 90 11/22/16 08:39 Resp 16 11/22/16 07:00 BP 154/88 11/22/16 07:00 Pulse Ox 95 11/22/16 07:00 Intake & Output 11/21/16 11/22/16 11/22/16 18:59 06:59 18:59 Output Total 675 250 Balance -675 -250 Output: Urine 675 250 Other: # Voids 3 1 # Bowel Movements 1 1 - Exam No acute distress, oriented 3. HEENT examination is grossly unremarkable.. Neck supple. Full range of motion. No adenopathy or thyromegaly. Cardiovascular examination reveals regular rhythm rate. Heart sounds are distant. S1 and S2 normal. No distinct murmur noted. Lungs reveal few scattered expiratory wheezes. A few scattered rhonchi. No crackles. Breath sounds equal but somewhat diminished. Abdomen soft. Bowel sounds are heard. Extremities are intact. - Labs CBC & Chem 7: 11/21/16 08:55 11/21/16 08:55 Labs: Microbiology - Last 24 Hours (Table) 11/20/16 14:15 Gram Stain - Final Sputum Sputum Culture - Final Assessment and Plan (1) Pneumonia Status: Acute Plan: Plan dated 11/22/2016 The patient seems be doing a bit better. We'll leave that up to his primary doctor to determine whether or not the patient should be discharged. The patient is feeling better. Less short of breath. Less coughing. Not producing much phlegm. Still feels a bit weak. Medications labs and x-rays are reviewed. Time with Patient: Less than 30
[2016-11-22] MEDS: SODIUM CHLORIDE 0.9% 1,000 ML IV SCH ×2 (13:23→18:22)
[2016-11-22] MEDS: MULTIVITAMINS, THERA 1 EACH TAB PO SCH (13:25)
--- NOTE | 2016-11-22 14:45 | XR ---
EXAMINATION TYPE: XR chest 2V DATE OF EXAM: 11/22/2016 1:02 PM HISTORY: Right lower lobe pneumonia. REFERENCE: Previous study dated 11/20/2016. FINDINGS: There has been a midline sternotomy. The lungs are overinflated. There is an enlarging infiltrate at the right lung base. There is bluntin g of both CP angles. I could not exclude small effusions. The heart is not enlarged. IMPRESSION: WORSENING RIGHT LOWER LOBE PNEUMONIA.
[2016-11-22] MEDS: LOSARTAN 25 MG TAB PO SCH (20:08)
[2016-11-22] MEDS: ATENOLOL 12.5 MG TAB PO SCH (20:08)
[2016-11-22] MEDS: AZITHROMYCIN 500 MG TAB PO SCH (20:08)
[2016-11-22] MEDS: ALPRAZolam 0.25 MG TAB PO PRN (22:48)
[2016-11-23] MEDS: IPRATROPIUM-ALBUTEROL 3 ML NEB INHALATION PRN ×5 (04:05→19:32)
--- NOTE | 2016-11-23 07:56 | P.PN ---
Progress Note - Text The patient is a 89-year-old gentleman with rather severe underlying COPD being oxygen dependent at home and with an FEV1 of only 52%. Patient presented with a right lower lobe pneumonia. Clinically patient appears to be showing gradual improvement although he is still short of breath with very minimal exertion and coughing some discolored phlegm. Last vital signs reveal temperature of 98.7 with a pulse of 84 and respirations 20. Blood pressure 159/73 and he is 94% saturated on 8 L high flow nasal cannula. Lungs are generally diminished with some rhonchi at the right base. Heart tones are regular. Abdomen is nontender. No unusual edema. He is alert without any focal neurological changes. Chest x-ray: From yesterday showed worsening of the right lower lobe pneumonia. Impressions and plans: Patient is having some mild clinical improvement despite lagging of his chest x- ray clearing. He seems overall comfortable at rest but gets short of breath with minimal exertion even before getting out of bed. He still does seem to be having trouble with therapy as per their notes. We will see how he does today. Discussed with patient at bedside options regarding possible extended care facility and if he is not strong enough to be able to move about his home. Pulmonary note regarded. Discussed with nursing staff this morning.
[2016-11-23] MEDS: POLYETHYLENE GLYCOL 3350 17 GM POWD.PACK PO SCH (10:08)
[2016-11-23] MEDS: SODIUM CHLORIDE 0.9% 1,000 ML IV SCH (10:08)
[2016-11-23] MEDS: ASPIRIN 81 MG CHEW PO SCH (10:09)
[2016-11-23] MEDS: ATENOLOL 25 MG TAB PO SCH (10:11)
[2016-11-23] MEDS: guaiFENesin 600 MG TABLET.ER PO SCH ×2 (10:11→20:06)
[2016-11-23] MEDS: CARBIDOPA-LEVODOPA 25-100 MG 1 EACH TAB PO SCH ×2 (10:11→20:06)
[2016-11-23] MEDS: CHOLECALCIFEROL 1,000 UNIT TAB PO SCH (10:12)
[2016-11-23] MEDS: FAMOTIDINE 20 MG TAB PO SCH (10:12)
[2016-11-23] MEDS: PSYLLIUM HUSK 100% 6 GM PACKET PO SCH ×2 (10:13→20:07)
--- NOTE | 2016-11-23 10:51 | P.PN ---
Subjective Progress note dated 10/25/2016 The patient seemed be doing better again today. Seen by Dr. Butcher yesterday. Feeling better then. The patient does have less wheezing coughing and shortness of breath. Sitting up at the bedside commode when I went into the room. No chest pain or chest discomfort. No fever no chills. No nausea vomiting or diarrhea. Progress note dated 11/23/2016 89-year-old patient that his doing better today than yesterday. Feeling better. Denies any significant cough. Not producing any phlegm. No fever no chills. Mildly short of breath on exertion. No active wheezing. The patient denies any chest pain or chest discomfort. No nausea vomiting or diarrhea. Objective - Vital Signs Vital signs: Vital Signs Temp 98.8 F 11/23/16 07:00 Pulse 84 11/23/16 08:38 Resp 21 11/23/16 07:00 BP 141/72 11/23/16 07:00 Pulse Ox 94 L 11/23/16 08:26 Intake & Output 11/22/16 11/23/16 11/23/16 18:59 06:59 18:59 Intake Total 300 Output Total 500 1000 Balance -500 -700 Intake: Oral 300 Output: Urine 500 1000 Other: Voiding Method Ileal Conduit (Right) # Voids 3 # Bowel Movements 1 - Exam No acute distress, oriented 3. HEENT examination is grossly unremarkable.. Neck supple. Full range of motion. No adenopathy or thyromegaly. Cardiovascular examination reveals regular rhythm rate. Heart sounds are distant. S1 and S2 normal. No distinct murmur noted. Lungs reveal few scattered expiratory wheezes. A few scattered rhonchi. No crackles. Breath sounds equal but somewhat diminished. Abdomen soft. Bowel sounds are heard. Extremities are intact. - Labs CBC & Chem 7: 11/21/16 08:55 11/21/16 08:55 Labs: Microbiology - Last 24 Hours (Table) 11/20/16 14:15 Gram Stain - Final Sputum Sputum Culture - Final Assessment and Plan (1) Pneumonia Status: Acute Plan: Plan dated 11/22/2016 The patient seems be doing a bit better. We'll leave that up to his primary doctor to determine whether or not the patient should be discharged. The patient is feeling better. Less short of breath. Less coughing. Not producing much phlegm. Still feels a bit weak. Medications labs and x-rays are reviewed. Plan dated 11/15/2016. The patient seemed be doing better. Less shortness of breath. Less cough. Less wheezing. Not producing any phlegm. A bit short of breath with exertion more than anything else. No fever no chills. No chest pain or chest discomfort. The patient not having any nausea vomiting or diarrhea.
[2016-11-23] MEDS: MULTIVITAMINS, THERA 1 EACH TAB PO SCH (13:32)
--- NOTE | 2016-11-23 13:52 | ECHOF ---
Referral Reason:SOB, SANTO MEASUREMENTS -------- HEIGHT: 175.3 cm WEIGHT: 78.0 kg BP: IVSd: 1.0 cm (0.6 - 1.1) LVIDd: 4.1 cm (3.9 - 5.3) LVPWd: 1.0 cm (0.6 - 1.1) IVSs: 1.6 cm LVIDs: 2.0 cm LVPWs: 1.4 cm LA Diam: 2.5 cm (2.7 - 3.8) Ao Diam: 2.5 cm (2.0 - 3.7) LA Diam: 2.4 cm (2.7 - 3.8) LA/Ao: 0.99 MV E Antoni: 0.73 m/s MV DecT: 213 ms MV A Antoni: 0.84 m/s MV E/A Ratio: 0.87 AV maxP.57 mmHg AV meanP.32 mmHg RAP: 5.00 mmHg RVSP: 71.79 mmHg FINDINGS -------- Sinus rhythm. This was a technically difficult study with suboptimal views. The left ventricular size is normal. Left ventricular wall thickness is normal. Overall left ventricular systolic function is normal with, an EF between 55 - 60 %. The right ventricle is normal in size and function. The left atrium is normal in size. The right atrium is normal in size. Peak/mean gradient across the Aortic Valve is 20.57mmHg / 12.32mmHg. Normally functioning bioprosthetic valve. Mild mitral annular calcification present. Mild mitral regurgitation is present. Severe tricuspid regurgitation present. There is severe pulmonary hypertension. The right ventricular systolic pressure, as measured by Doppler, is 71.79mmHg. There is no pulmonic regurgitation present. The aortic root size is normal. There is no pericardial effusion. CONCLUSIONS -------- 1. Sinus rhythm. 2. There is severe pulmonary hypertension. 3. The right ventricular systolic pressure, as measured by Doppler, is 71.79mmHg. 4. There is no pulmonic regurgitation present. 5. The aortic root size is normal. 6. There is no pericardial effusion. 7. This was a technically difficult study with suboptimal views. 8. Left ventricular wall thickness is normal. 9. The left atrium is normal in size. 10. Peak/mean gradient across the Aortic Valve is 20.57mmHg / 12.32mmHg. 11. Normally functioning bioprosthetic valve. 12. Mild mitral annular calcification present. 13. Mild mitral regurgitation is present. 14. Severe tricuspid regurgitation present. RADIO PRODUCER: Sarah Bhat RDCS
[2016-11-23] MEDS: LOSARTAN 25 MG TAB PO SCH (20:06)
[2016-11-23] MEDS: ATENOLOL 12.5 MG TAB PO SCH (20:06)
[2016-11-23] MEDS: AZITHROMYCIN 500 MG TAB PO SCH (20:06)
[2016-11-23] MEDS: ALPRAZolam 0.25 MG TAB PO PRN (22:28)
[2016-11-24] MEDS: IPRATROPIUM-ALBUTEROL 3 ML NEB INHALATION PRN ×3 (02:29→11:55)
[2016-11-24 08:00] VITALS: BP 164/85; RESP 22; TEMP 97.9
[2016-11-24] MEDS: ASPIRIN 81 MG CHEW PO SCH (08:02)
[2016-11-24] MEDS: guaiFENesin 600 MG TABLET.ER PO SCH (08:02)
[2016-11-24] MEDS: CARBIDOPA-LEVODOPA 25-100 MG 1 EACH TAB PO SCH (08:02)
[2016-11-24] MEDS: ATENOLOL 25 MG TAB PO SCH (08:02)
[2016-11-24] MEDS: FAMOTIDINE 20 MG TAB PO SCH (08:02)
[2016-11-24] MEDS: CHOLECALCIFEROL 1,000 UNIT TAB PO SCH (08:02)
[2016-11-24] MEDS: PSYLLIUM HUSK 100% 6 GM PACKET PO SCH (08:03)
[2016-11-24] MEDS: POLYETHYLENE GLYCOL 3350 17 GM POWD.PACK PO SCH (08:04)
--- NOTE | 2016-11-24 08:13 | P.DS ---
Providers Date of admission: 11/19/16 00:29 Attending physician: Dannie Warren Primary care physician: Dannie Warren The patient is an 89-year-old gentleman who has very severe underlying COPD who is oxygen dependent at home and has an FEV1 of 52% predicted who presented with cough and shortness of breath. Patient was found to have a right lower lobe pneumonia on chest x-ray. Patient was admitted and placed on IV antibiotics along with respiratory treatments and consultation obtained with pulmonary medicine, please refer to notes from Dr. Pearson and Dr. Nolan. Laboratory values revealed a initial white count was 16.9 . Hemoglobin 16.2 and a platelet count of 170. Potassium was slightly elevated at times at 5.1 with a BUN of 25 and a creatinine of 1.25. Troponins were less than 0.012. Urinalysis also showed positive leukocyte esterase and many white cells and eventually culture did grow out Citrobacter freundii from the urostomy. Blood cultures were negative. Sputum short normal kory. Patient also seen by physical and occupational therapy. Clinically he gradually improved although his baseline is tenuous with shortness of breath with minimal exertion at home. Discussed with patient along with daughter. They felt that he did not want a rehab placement and he would do better at home with home nursing and likely physical therapy added along with continuing his antibiotics orally. Echocardiogram: Showed sinus rhythm. Severe pulmonary hypertension. Right ventricular systolic pressure of 71. Normal left atrial size. Normal functioning bioprosthetic valve. Home medications Ceftin 500 mg twice a day to be sent to [facility] pharmacy Mucinex 600 twice a day MiraLAX 17 g daily Centrum Silver one daily Citrucel one scoop twice a day Avapro 75 mg at at bedtime DuoNeb respiratory treatments 4 times a day and when necessary Vitamin D3 1000 units daily Sinemet 25-100 twice a day for restless leg Atenolol 12.5 at at bedtime Atenolol 25 mg in the morning Aspirin 81 mg daily Xanax 0.25-0.5 mg at bedtime as needed. Diagnoses: 1. Right lower lobe pneumonia. Organism unspecified. 2. Exacerbation of COPD with right lower lobe pneumonia and severe COPD. Oxygen dependent. FEV1 less than 52%. 3. Acute on chronic renal failure stage III with a GFR 53 and worsening in light of sepsis and pneumonia. 4. Urinary tract infection from his urostomy with Citrobacter. 5. Restless leg syndrome. 6. History of previous gout attacks 7. Hypertension 8. History of previous bladder CA with resection and urostomy in place. 9. Previous hernia repair 10. Previous aortic valve replacement 11. Coronary artery disease with previous stenting. 12. Frail state/medical debility 13. Acute on chronic respiratory failure secondary to the severe COPD and pneumonia with decrease in O2 saturation into the 80s. The patient once again to have home care. Prognosis is somewhat guarded in light of his advanced age and multiple medical concerns. Generalized weakness secondary to his underlying COPD. Plan - Discharge Summary Discharge Medication List ALPRAZolam [Xanax] 0.25 - 0.5 mg PO HS PRN 11/18/16 [History] Aspirin EC [Ecotrin Low Dose] 81 mg PO DAILY 11/18/16 [History] Atenolol 12.5 mg PO HS 11/18/16 [History] Atenolol 25 mg PO QAM 11/18/16 [History] Carbidopa-Levodopa 25-100 mg [Sinemet 25-100] 1 tab PO BID 11/18/16 [History] Cholecalciferol [Vitamin D3] 1,000 unit PO DAILY 11/18/16 [History] Ipratropium-Albuterol Nebulize [Duoneb 0.5 mg-3 mg/3 ml Soln] 3 ml INHALATION RT -QID 11/18/16 [History] Irbesartan [Avapro] 75 mg PO HS 11/18/16 [History] Methylcellulose (with Sugar) [Citrucel Powder] 1 scoop PO BID 11/18/16 [History] Multivit-Min/FA/Lycopene/Lut [Centrum Silver Tablet] 1 tab PO DAILY 11/18/16 [ History] Polyethylene Glycol 3350 [Miralax] 17 gm PO DAILY 11/18/16 [History] guaiFENesin [Mucinex] 600 mg PO BID 11/18/16 [History] Follow up Appointment(s)/Referral(s): Dannie Warren MD [Primary Care Provider] - 1-2 days [facility] Visiting Nurse, [NON-STAFF] -
--- NOTE | 2016-11-24 11:44 | P.PN ---
Subjective Progress note dated 10/25/2016 The patient seemed be doing better again today. Seen by Dr. Butcher yesterday. Feeling better then. The patient does have less wheezing coughing and shortness of breath. Sitting up at the bedside commode when I went into the room. No chest pain or chest discomfort. No fever no chills. No nausea vomiting or diarrhea. Progress note dated 11/23/2016 89-year-old patient that his doing better today than yesterday. Feeling better. Denies any significant cough. Not producing any phlegm. No fever no chills. Mildly short of breath on exertion. No active wheezing. The patient denies any chest pain or chest discomfort. No nausea vomiting or diarrhea. Progress note dated 11/24/2016 89-year-old male doing better today. Less respiratory issues. Addie states the ceiling relatively well from the pulmonary standpoint. No cough no wheezing. Not coughing up any phlegm. No shortness of breath. A bit short of breath when he gets up to go to the bathroom. No hemoptysis. No fever no chills. No nausea vomiting or diarrhea. No chest discomfort or chest pain. Objective - Vital Signs Vital signs: Vital Signs Temp 97.9 F 11/24/16 07:00 Pulse 84 11/24/16 08:13 Resp 22 11/24/16 08:00 BP 164/85 11/24/16 07:00 Pulse Ox 94 L 11/24/16 07:00 Intake & Output 11/23/16 11/24/16 11/24/16 18:59 06:59 18:59 Intake Total 120 Output Total 400 150 Balance -400 -30 Intake: Oral 120 Output: Urine 400 150 Other: Voiding Method Ileal Conduit (Right) Ileal Conduit (Right) # Voids 4 - Exam No acute distress, oriented 3. HEENT examination is grossly unremarkable.. Neck supple. Full range of motion. No adenopathy or thyromegaly. Cardiovascular examination reveals regular rhythm rate. Heart sounds are distant. S1 and S2 normal. No distinct murmur noted. Lungs reveal few scattered expiratory wheezes. A few scattered rhonchi. No crackles. Breath sounds equal but somewhat diminished. Abdomen soft. Bowel sounds are heard. Extremities are intact. - Labs CBC & Chem 7: 11/21/16 08:55 11/21/16 08:55 Assessment and Plan (1) Pneumonia Status: Acute Plan: Plan dated 11/22/2016 The patient seems be doing a bit better. We'll leave that up to his primary doctor to determine whether or not the patient should be discharged. The patient is feeling better. Less short of breath. Less coughing. Not producing much phlegm. Still feels a bit weak. Medications labs and x-rays are reviewed. Plan dated 11/15/2016. The patient seemed be doing better. Less shortness of breath. Less cough. Less wheezing. Not producing any phlegm. A bit short of breath with exertion more than anything else. No fever no chills. No chest pain or chest discomfort. The patient not having any nausea vomiting or diarrhea. Plan dated 11/24/2016 The patient is doing well. Possible discharge today. No additional recommendations are made. We'll continue to follow as needed. I did express to the nurse and to the nurse practitioner who works for Dr. Segura that the patient could likely be discharged home. Time with Patient: Less than 30
[2016-11-24] MEDS: MULTIVITAMINS, THERA 1 EACH TAB PO SCH (12:08)
[2016-11-24 12:21] VITALS: PULSE 72
== END 2016-11-24 13:35 | disposition home health service (06) | DRG 190 ==
LOC: EC 21:31 → 6SEL 11-19 00:29 → 4MS4W 11-19 07:50
PROVIDERS: ADMIT Internal Medicine; ATTEND Internal Medicine
DX: J44.0 Chronic obstructive pulmonary disease with (acute) lower respiratory infection (principal); J18.9 Pneumonia, unspecified organism; J96.21 Acute and chronic respiratory failure with hypoxia; N17.9 Acute kidney failure, unspecified; E86.0 Dehydration; N39.0 Urinary tract infection, site not specified; Z99.81 Dependence on supplemental oxygen; N18.3 Chronic kidney disease, stage 3 (moderate); I73.9 Peripheral vascular disease, unspecified; J44.1 Chronic obstructive pulmonary disease with (acute) exacerbation; E78.5 Hyperlipidemia, unspecified; G25.81 Restless legs syndrome; I12.9 Hypertensive chronic kidney disease with stage 1 through stage 4 chronic kidney disease, or unspecified chronic kidney disease; I25.10 Atherosclerotic heart disease of native coronary artery without angina pectoris; I25.2 Old myocardial infarction; M10.9 Gout, unspecified; M19.042 Primary osteoarthritis, left hand; M19.041 Primary osteoarthritis, right hand; N40.0 Benign prostatic hyperplasia without lower urinary tract symptoms; Z79.82 Long term (current) use of aspirin; Z82.49 Family history of ischemic heart disease and other diseases of the circulatory system; Z82.5 Family history of asthma and other chronic lower respiratory diseases; Z85.46 Personal history of malignant neoplasm of prostate; Z85.51 Personal history of malignant neoplasm of bladder; Z85.820 Personal history of malignant melanoma of skin; Z87.442 Personal history of urinary calculi; Z87.891 Personal history of nicotine dependence; Z93.3 Colostomy status; Z93.6 Other artificial openings of urinary tract status; Z95.3 Presence of xenogenic heart valve; Z95.5 Presence of coronary angioplasty implant and graft; Z79.899 Other long term (current) drug therapy; Z88.2 Allergy status to sulfonamides
CPT/HCPCS: 36415; 71020; 80048; 80053; 81001; 82550; 82553; 83605; 84484; 85025; 85379; 85610; 85730; 87040; 87070; 87077; 87086; 87186; 87205; 93005; 93306; 94640; 94760; 96361; 96365; 96375; 99291